=== PATIENT | male | born 1950 | race Caucasian/White ===

== ENCOUNTER 2017-09-29 19:43 | Emergency (ER) | payer OTHER ==
[2017-09-29 19:52] VITALS: RESP 16; TEMP 98.1
--- NOTE | 2017-09-29 20:06 | EDPHY ---
HPI/HX/ROS/PE/MDM Narrative: CHIEF COMPLAINT: "I lost my balance and I fell and hit my head". HISTORY OF PRESENT ILLNESS: This patient is a 66 year old male complaining of headache, dizziness, and shortness of breath secondary to a mechanical fall earlier today in which he struck his head. He felt imbalanced while walking in the bedroom, and fell, striking his head against a wooden chair. He endorses a momentary loss of consciousness, and when he woke, he had nausea and an immediate urge to urinate. He states he has had difficulty with imbalance due to essential tremor for several years, which has been more severe today than normal. He has been feeling unwell all day with headache, shortness of breath, and dizziness ( spinning). Similar symptoms to prior pulmonary embolism, felt anxious regarding this. The patient lives in [place] and initially felt these symptoms may be due to altitude, but became concerned because these symptoms are also similar to when he had a pulmonary embolism several years ago. He traveled by plane to [place] yesterday. No chest pain, palpitations, lightheadedness. Denies any syncope. He denies any other trauma. Currently, he complaints of head pain and continues to feel quite nauseous. No history of cardiac abnormalities. No recent cold or cough. No fever, chills, vomiting, diarrhea, urinary complaints. Denies alcohol to day but does state he drinks wine regularly. REVIEW OF SYSTEMS: Aside from elements discussed in the HPI, a comprehensive 10-point review of systems was reviewed and is negative. PAST MEDICAL HISTORY: 1. Inflexibility 2. Essential trauma 3. Pulmonary embolism, formerly anticoagulated. 4. Cholecystectomy SOCIAL HISTORY: Lives in [place]. Friend at bedside. Nonsmoker. Social alcohol use. VITAL SIGNS: Reviewed by me. NSR on monitor. GENERAL: Tremulous. Complaining of nausea. Well-developed, well-nourished, resting comfortably in no respiratory distress. HEENT: Hematoma to left forehead, abrasion with dried blood. Eyes: No icterus, no injection. PERRL, EOMI. Mouth: moist mucous membranes. No erythema or lesions. Neck: mild inconsistent tenderness to palpation throughout. LUNGS: Clear to auscultation bilaterally, no wheezes, rhonchi or rales. CARDIAC: Regular rate and rhythm, no rubs, murmurs or gallops. ABDOMEN: Soft, nontender, nondistended, bowel sounds normal. BACK: No CVA tenderness. EXTREMITIES: No trauma. No edema. Range of motion is normal throughout. NEURO: Alert and oriented x 3. Diffuse tremor of hands. SKIN: Warm and dry, no rash. PSYCHIATRIC: Normal mentation, no agitation. Portions of this note were transcribed by a medical genetics director. I personally performed a history, physical exam, medical decision making, and confirmed accuracy of information the transcribed note. ED Course: 66 y/o male presents following a fall this afternoon in which he struck his head. Exam reveals hematoma to the left forehead with dried blood. Patient is also fairly tremulous. I wonder if there may be an element of alcohol withdrwal. Plan for CT head and neck. Plan for CT chest given patient's history of PE with similar presentation. Plan for labs including CBC, chemistries, EtOH, coag. Plan to administer 1mg IV Ativan for symptom relief. Laboratory studies largely unremarkable. EtOH negative. 21:[address] Solano, radiologist. CT head and cervical spine negative for acute processes. CT chest negative for PE or acute traumatic processes. 22:08 Reassessed patient. Discussed imaging results. He is feeling better following Ativan administration. He is not sure what makes his tremor better or worse, but he does not believe it is associated with his alcohol consumption. He reports he feels at baseline. No further nausea. Complaining of the development of a mild headache. Plan to discharge home in good condition with prescription for Zofran for nausea relief. Follow up and return precautions discussed. He is comfortable with this plan. MDM: Differential diagnosis of this patient's fall, tremor, and shortness of breath was considered including but not limited to intracranial injury, spinal injury, intrathoracic injury, extremity injury, essential tremor, pulmonary emboli, alcohol withdrawal, hematoma, contusions, lacerations, abrasions, and contusions. - Data Points Imaging: Discussed imaging studies w/ laborer wrecking and salvaging Radiologist Laboratory Results: Laboratory Results 09/29/17 19:45 09/29/17 19:45 Medications Given: Discontinued Medications Acetaminophen (Tylenol) 1,000 mg PO EDNOW ONE Stop: 09/29/17 22:15 Last Admin: 09/29/17 22:20 Dose: 1,000 mg Sodium Chloride (Ns) 1,000 mls @ 0 mls/hr IV ONCE ONE; Wide Open PRN Reason: Protocol Stop: 09/29/17 20:11 Last Admin: 09/29/17 20:17 Dose: 1,000 mls Sodium Chloride (Ns) 1,000 mls @ 0 mls/hr IV ONCE ONE; Wide Open PRN Reason: Protocol Stop: 09/29/17 20:14 Last Admin: 09/29/17 20:18 Dose: 1,000 mls Ibuprofen (Motrin) 600 mg PO EDNOW ONE Stop: 09/29/17 22:15 Last Admin: 09/29/17 22:20 Dose: 600 mg Lorazepam (Ativan Injection) 1 mg IVP EDNOW ONE Stop: 09/29/17 20:14 Last Admin: 09/29/17 20:17 Dose: 1 mg Ondansetron HCl (Zofran Odt 4 Mg Prepack#2) 1 btl TAKEHOME EDNOW ONE Stop: 09/29/17 22:15 Last Admin: 09/29/17 22:21 Dose: 1 btl General Time Seen by Provider: 09/29/17 19:44 Initial Vital Signs: Initial Vital Signs Temperature (C) 36.7 C 09/29/17 19:47 Heart Rate 90 09/29/17 19:47 Respiratory Rate 16 09/29/17 19:47 Blood Pressure 158/102 H 09/29/17 19:47 O2 Sat (%) 95 09/29/17 19:47 O2 Delivery Mode Room Air Allergies/Adverse Reactions: No Known Allergies Allergy (Unverified 09/29/17 19:47) Home Medications: Medication Instructions Recorded NK [No Known Home Meds] 09/29/17 Departure - Departure Disposition: Home, Routine, Self-Care Clinical Impression: Head injury Qualifiers: Encounter type: initial encounter Qualified Code(s): S09.90XA - Unspecified injury of head, initial encounter Head contusion Qualifiers: Encounter type: initial encounter Contusion of head detail: scalp Qualified Code(s): S00.03XA - Contusion of scalp, initial encounter Condition: Good Instructions: Ondansetron (By mouth), Head Injury (ED), Facial Contusion (ED) Additional Instructions: 1. Follow-up with your primary doctor within 2-3 days. 2. Take Tylenol or ibuprofen as directed below as needed for pain. Take Zofran as prescribed as needed for nausea. 3. Return to the Emergency Department for severe headache, vomiting, vision changes, confusion, fever or other concerns. 4. Please avoid activities in which you may fall or strike your head again. Adult Pain & Fever Control: We recommend Acetaminophen (Tylenol) and Ibuprofen (Motrin,Advil) for pain and fever control. When fever is high or pain severe, both drugs can be used at the same time, but at different intervals. Please note the time differences. Your dose is: Acetaminophen 650mg every 4 to 6 hours Ibuprofen 600mg every 6-8 hours with food Note: do not take Acetaminophen with Hydrocodone (Vicodin, Lortab) or Oxycodone (Percocet). These medications also contain Acetaminophen. No more than 3000mg of Acetaminophen should be taken in 24 hours (for an adult). Referrals: Carissa Bello MD [Medical Doctor] - As per Instructions Report Scribed for: Lashaun Palafox Report Scribed by: Tosha Harrell Date of Report: 09/29/17 Time of Report: 22:08
[2017-09-29] MEDS ORDERED: NS 1,000 ML IV ONE ×2 (20:10→20:13)
[2017-09-29] MEDS ORDERED: LORazepam 2 MG/ML INJ IVP ONE (20:13)
[2017-09-29 20:22] LABS: PLATELET COUNT 274 10^3/uL (150-400)
[2017-09-29 20:43] LABS: INR 0.97 (0.83-1.16); PROTIME(PATIENT) 13.1 SEC (12.0-15.0)
[2017-09-29] MEDS ORDERED: IOPAMIDOL (ISOVUE-300) 100 ML BTL ONE (20:46)
[2017-09-29] MEDS ORDERED: ACETAMINOPHEN 500 MG TAB PO ONE (22:14)
[2017-09-29] MEDS ORDERED: IBUPROFEN 600 MG TAB PO ONE (22:14)
[2017-09-29] MEDS ORDERED: ONDANSETRON 4MG PREPACK#2 BTL TAKEHOME ONE (22:14)
[2017-09-29 22:25] VITALS: BP 135/99; PULSE 73; O2SAT 95
== END 2017-09-29 22:35 | disposition home or self-care (01) ==
DX: S00.03XA Contusion of scalp, initial encounter (principal); E86.9 Volume depletion, unspecified; W01.198A Fall on same level from slipping, tripping and stumbling with subsequent striking against other object, initial encounter; Y92.003 Bedroom of unspecified non-institutional (private) residence as the place of occurrence of the external cause; Y93.01 Activity, walking, marching and hiking
CPT/HCPCS: 70450; 71260; 72125; 96361; 96374; 99285; J2060; Q9967; G0480